=== PATIENT | male | born 1990 | race Caucasian/White ===

== ENCOUNTER 2019-11-18 19:33 | Emergency (ER) | payer OTHER ==
[~2019-11-18] VITALS: Ht 185.4 cm; Wt 100.0 kg
--- NOTE | 2019-11-18 19:39 | PHYS DOC ---
General Adult EDM: Chief Complaint: DENTAL PROBLEM HPI: HPI: "..I had a temporary bridge or filling.. but have not been able to follow up because of the COVID thing...I was eating..and something cracked..the bridge just now fell out..." Patient is a 29 year old male prisoner from the [facility] who presents with above hx and complaints of dental pain in the area of 11 and 12. Patient has area that appears to be decay .. There is no pointing abscess. There is surrounding gingivitis and inflammation. There is no trismus. There is no adenopathy. Patient denies any history of immunosuppression. Patient denies any recent travel outside the [place] area. No history of trauma. No specific ill contacts. Patient is up-to-date with vaccinations. Review of Systems: Review of Systems: Constitutional: Denies fever or chills Eyes: Denies change in visual acuity HENT: Denies nasal congestion or sore throat . Complaints of dental pain. Respiratory: Denies cough or shortness of breath Cardiovascular: Denies chest pain or edema GI: Denies abdominal pain, nausea, vomiting, bloody stools or diarrhea : Denies dysuria Musculoskeletal: Denies back pain or joint pain Integument: Denies rash Neurologic: Denies headache, focal weakness or sensory changes Endocrine: Denies polyuria or polydipsia Lymphatic: Denies swollen glands Psychiatric: Denies depression or anxiety Heart Score: Risk Factors: Risk Factors: DM, Current or recent (<one month) smoker, HTN, HLP, family history of CAD, obesity. Risk Scores: Score 0 - 3: 2.5% MACE over next 6 weeks - Discharge Home Score 4 - 6: 20.3% MACE over next 6 weeks - Admit for Clinical Observation Score 7 - 10: 72.7% MACE over next 6 weeks - Early Invasive Strategies Family History: Family History: Noncontributory to presentation Current Medications: Current Meds: See nursing for home meds Allergies: Allergies: No known drug allergies Physical Exam: PE: Constitutional: Well developed, well nourished, moderate acute distress, non- toxic appearance. [] HENT: Normocephalic, atraumatic, bilateral external ears normal, oropharynx moist, no oral exudates, nose normal. [] Area of tooth loss and temporary filling at 11/12. No trismus. Eyes: PERRLA, EOMI, conjunctiva normal, no discharge. [] Neck: Normal range of motion, no tenderness, supple, no stridor. [] Cardiovascular:Heart rate regular rhythm, no murmur [] Lungs & Thorax: Bilateral breath sounds equal apex on auscultation [] Abdomen: Bowel sounds normal, soft, no tenderness, no masses, no pulsatile masses. [] Skin: Warm, dry, no erythema, no rash. [] Back: No tenderness, no CVA tenderness. [] Extremities: No tenderness, no cyanosis, no clubbing, ROM intact, no edema. [] Neurologic: Alert and oriented X 3, normal motor function, normal sensory function, no focal deficits noted. [] Psychologic: Affect normal, judgement normal, mood normal. [] EKG: EKG: [] Radiology/Procedures: Radiology/Procedures: [] Course & Med Decision Making: Course & Med Decision Making Pertinent Labs and Imaging studies reviewed. (See chart for details) Avoid extreme temperatures. Soft diet. Must follow-up with dentist. Take Tylenol ibuprofen for pain. For marked pain may have Vicoprofen up to 4 times a day. Patient take Keflex 500 mg 3 times a day. Must be followed up with dentist. Impression: 1. Dental pain 03/29 2. Lost of Temporary bridge/filling 3. Dental decay [] Dragon Disclaimer: [place] Disclaimer: This electronic medical record was generated, in whole or in part, using a voice recognition dictation system. Departure Departure: Disposition: 01 HOME/RESIDENCE PRIOR TO ADM Condition: STABLE Referrals: PCP,UNKNOWN (PCP) Scripts Ibuprofen (IBUPROFEN) 400 Mg Tablet 1 TAB PO PRN Q6HRS for pain, fever, #120 TAB Prov: SINDHU LOVETT MD 11/18/19 Acetaminophen (ACETAMINOPHEN) 500 Mg Tablet 1000 MG PO QIDPRN PRN for pain, fever, #120 TAB Prov: SINDHU LOVETT MD 11/18/19 Cephalexin (KEFLEX) 500 Mg Capsule 500 MG PO TID for dental, #30 BOTTLE Prov: SINDHU LOVETT MD 11/18/19 Hydrocodone/Ibuprofen (HYDROCODONE-IBUPROFEN 7.5-200 ) 1 Each Tablet 1 TAB PO PRN Q6HRS PRN for PAIN, #30 TAB 0 Refills Prov: SINDHU LOVETT MD 11/18/19 Justification of Admission: Justification of Admission: Justification of Admission Dx: N/A Dragon Disclaimer This chart was dictated in whole or in part using Voice Recognition software in a busy, high-work load, and often noisy Emergency Department environment. It may contain unintended and wholly unrecognized errors or omissions. Dragon Disclaimer This chart was dictated in whole or in part using Voice Recognition software in a busy, high-work load, and often noisy Emergency Department environment. It may contain unintended and wholly unrecognized errors or omissions. Dragon Disclaimer This chart was dictated in whole or in part using Voice Recognition software in a busy, high-work load, and often noisy Emergency Department environment. It may contain unintended and wholly unrecognized errors or omissions. SINDHU LOVETT MD Nov 18, 2019 19:39
[2019-11-18 19:46] VITALS: BP 143/69
[2019-11-18] MEDS ORDERED: ACET500T68 PO (19:56)
[2019-11-18] MEDS ORDERED: CEPH-264 PO (19:56)
[2019-11-18] MEDS ORDERED: HYDR-1179 PO (19:56)
[2019-11-18] MEDS ORDERED: IBUP400T18 PO (19:56)
[2019-11-18] MEDS ORDERED: cefTRIAXone IM 1 GM VIAL IM ONE (20:00)
[2019-11-18] MEDS ORDERED: KETOROLAC 60 MG/2 ML VIAL. IM ONE (20:00)
== END 2019-11-18 20:16 | disposition home or self-care (01) ==
LOC: ER 19:33 → EEVIPCON 19:33 → ER 20:16
DX: K02.9 Dental caries, unspecified (principal)
CPT/HCPCS: 96372; 99284; J0696; J1885